=== PATIENT | male | born 1930 | race Caucasian/White ===

== ENCOUNTER 2016-07-06 19:25 | Emergency (ER) | payer OTHER ==
[~2016-07-06] VITALS: Ht 177.8 cm; Wt 86.2 kg
[2016-07-06 19:53] LABS: BASO % 0.2 % (0.0-1.0); EOS # 0.1 10*3/uL (0.0-0.4); EOS % 0.9 % (1.0-4.0); HEMATOCRIT 33.6 % (42.0-52.0); HEMOGLOBIN 11.4 g/dl (14.0-18.0); IG # 0.1 10*3/uL (0.0-0.1); MEAN CELL VOLUME 99.7 fl (80.0-94.0); MEAN CORPUSCULAR HGB 33.8 pg (27.0-31.0); MEAN CORPUSCULAR HGB CONC 33.9 g/dl (33.0-37.0); MEAN PLATELET VOLUME 9.6 fl (9.6-12.3); MONO # 0.5 10*3/uL (0.1-1.0); MONO % 6.2 % (3.0-9.0); NEUT # 6.4 10*3/uL (2.3-7.9); NEUT % 79.1 % (47.0-73.0); PLATELET COUNT AUTOMATED 93 10*3/uL (130-400); RED BLOOD COUNT 3.37 10*6/uL (4.50-5.90); RED CELL DISTRI WIDTH 14.6 % (0-14.5)
[2016-07-06 20:04] LABS: PROTHROMBIN TIME 10.5 SECONDS (9.0-12.4)
[2016-07-06 20:11] LABS: ALBUMIN 3.9 gm/dl (3.1-4.5); ALKALINE PHOSPHATASE 68 U/L (45-117); BILIRUBIN, TOTAL 0.4 mg/dl (0.2-1.0); BUN 44 mg/dl (7-24); CARBON DIOXIDE 22 mmol/L (21-32); CHLORIDE 109 mmol/L (98-107); CKMB 2.7 ng/ml (0.5-3.6); CPK 156 U/L (39-308); EST GLOM FILT AFRICAN AMERICAN 47 ml/min; GLUCOSE 115 mg/dL (65-99); LDH 112 U/L (87-241); POTASSIUM 4.8 mmol/L (3.5-5.1); SGOT/AST 19 IU/L (3-35); SGPT/ALT 19 U/L (12-78); SODIUM 141 mmol/L (136-145); TOTAL PROTEIN 8.3 gm/dL (6.4-8.2); TROPONIN I < 0.015 ng/ml (<0.045)
== END 2016-07-06 22:18 | disposition left against medical advice (07) ==
LOC: ED 19:25
PROVIDERS: Physician Assistant
DX: R55 Syncope and collapse (principal); I10 Essential (primary) hypertension